=== PATIENT | male | born 1995 | race Caucasian/White ===

== ENCOUNTER → 2016-10-13 | Outpatient (CLI) | payer OTHER ==
[~2016-10-13] MED LIST: CONRAY-43 43% 50ML VIAL (Q9960) As Ordered ONE
--- NOTE | 2016-10-13 10:17 | REP ---
MRI LEFT HIP WITHOUT AND WITH CONTRAST: 10/13/2016. Clinical history: Chronic left hip pain, radiographs suggest impingement. Technique: Whole pelvic T1 and fat suppressed T2 STIR sequence with small field of view fat suppressed T2 coronal and axial images and post contrast injection fat suppressed T1 coronal oblique, axial and sagittal sequence provided. Findings: The whole pelvic coronal image sets show marrow signal in the distal portion of sacrum, iliac bones, acetabuli, ischii, and symphysis pubis to be unremarkable except for a bone cyst at the inferior aspect of the right symphysis pubis. Femoral heads, necks and trochanters were unremarkable except for a bone island in the right femoral neck. There is slight bulge in the contour of the superior aspect of the junction of the femoral head and neck on both sides which may reflect femoral acetabular impingement. On the precontrast images there is no hip joint effusion. No definite loose body. There is no sign of trochanteric tendinobursitis. The intrinsic and extrinsic pelvic, hip, buttock, thigh and abdominal musculature visible was symmetric and unremarkable. Bladder only partially filled but without mass or wall thickening. No pelvic free fluid. No inguinal adenopathy or mass. The iliopsoas, obturator internus and hamstring insertions tendon insertions on the inferior pubic ramus were all unremarkable. On the post contrast images there is very little contrast in the joint. Appropriate location of contrast on the radiograph accompanying the arthrogram injection is noted. This suggests rapid absorption of contrast that leaked into the soft tissues. I cannot confirm a definite labral tear on that superior labrum, but the anterior labrum on the axial and coronal views shows the capsule attachment undermined with contrast within. Impression: 1. No loose body, bone bruise or fracture of the left hip. No joint effusion. 2. Slight rounded contour of the junction of the femoral head and greater trochanter suggesting some mild femoral acetabular impingement bilaterally. 3. Poor retention of contrast in the joint on the arthrogram images although contrast clearly there on the injection fluoroscopic image. This suggest leakage out of the joint and rapid resorption. However, there appears to be capsular avulsion off the anterior labrum on the sagittal and axial views. No superior labral tear. No other finding. Signed by Antony Lopez MD 10/13/2016 05:43 P
--- NOTE | 2016-10-13 17:40 | REP ---
LEFT HIP ARTHROGRAM: 10/13/2016. The procedure was performed under the direction supervision of Dr. Lopez. The benefits and risks including but not limited to pain, infection, bleeding and anaphylaxis were explained to the patient and informed consent was obtained. The left femoral neck was localized using fluoroscopic guidance. Skin was prepped and draped in a sterile fashion. 1% lidocaine was used as a local anesthetic. Using fluoroscopic guidance a 22 gauge spinal needle was inserted and advanced to the femoral neck. 0.5 ml of Conray 43 was injected to verify placement. 11 ml of a solution containing 20 ml of sterile saline and 0.15 ml of ProHance was injected into the joint. The needle was removed and the patient was taken to MRI for postprocedural imaging. The the patient tolerated the procedure well and there were no immediate complications. 1 second of fluoro time was utilized for this procedure. Reviewed by JOVANNI Garcia 10/13/2016 05:19 PSigned by Antony Lopez MD 10/13/2016 05:32 P
== END ==
LOC: M RADPRO 07:01
PROVIDERS: ATTEND Family Medicine
DX: M25.552 Pain in left hip (principal)
CPT/HCPCS: 27093; 73723; 77002; A9576; Q9960

== ENCOUNTER → 2016-11-25 | Outpatient (CLI) | payer OTHER ==
--- NOTE | 2016-11-26 08:35 | REP ---
Clinical: Left hip pain. Technique: Axial noncontrast images through the left hip with coronal and sagittal re-formations. Findings: The osseous structures are relatively normal. There is a mildly prominent appearance to the anterior inferior iliac spine which likely represents normal variant, but should be correlated with physical examination. The remainder of the osseous structures involving the left hip are essentially normal. The acetabulum appears normal and the associated joint space is unremarkable and grossly within normal limits. The surrounding musculoskeletal structures/compartments appear intact and normal. No mass lesion or abnormal fluid collection is identified. No obvious effusion. Incidental note is made of a 1.8 cm solitary bone cyst in the right pubic symphysis. There is no evidence for acute or healed fracture/dislocation. No overt osteoarthritic degenerative changes are identified. Impression: Mildly prominent anterior inferior iliac spine which likely represents normal variant, but should be correlated with physical examination. Incidental 1.8 cm solitary bone cyst in the right pubic symphysis. Remainder of the evaluation to the left hip appears normal for age. Signed by Thai Hall MD 11/26/2016 08:26 A
== END ==
LOC: M RAD 07:14
PROVIDERS: ATTEND Orthopaedic Surgery
DX: M25.552 Pain in left hip (principal); M85.60 Other cyst of bone, unspecified site